=== PATIENT | female | born 1990 | race Caucasian/White ===

== ENCOUNTER → 2018-08-29 | Outpatient (CLI) | payer OTHER ==
--- NOTE | 2018-08-29 13:03 | REP ---
LEFT WRIST COMPLETE: 08/29/2018. CLINICAL HISTORY: Left wrist pain after trauma, patient fell. FINDINGS: Four views are provided. Distal radius and ulna without fracture or focal lesion. Carpal bones and their joint spaces are grossly intact. No fracture or avulsion. Metacarpals and their articular relationships to the wrist and phalanges as visualized are also normal. IMPRESSION: 1. No visible or displaced fracture, avulsion, subluxation, focal bone lesion or other acute finding. Electronically Signed by Moustapha Chinchilla MD 08/29/2018 08:41 P
== END ==
LOC: M LRY 12:12
PROVIDERS: ATTEND Physician Assistant
DX: S69.92XA Unspecified injury of left wrist, hand and finger(s), initial encounter (principal); X58.XXXA Exposure to other specified factors, initial encounter; Y92.89 Other specified places as the place of occurrence of the external cause

== ENCOUNTER → 2019-04-13 | Outpatient (CLI) | payer OTHER ==
--- NOTE | 2019-04-13 22:46 | REP ---
TRANSVAGINAL PELVIC ULTRASOUND: Transvaginal pelvic ultrasound performed. Upper pelvis is suboptimally visualized due to this limited transvaginal scan. We attempted to obtain an order for transabdominal pelvic ultrasound, but were unsuccessful. The uterus is bicornuate in configuration and measures 9.3 x 4.4 x 6.7 cm. Endometrial thickness is 4 mm in the right horn and 5 mm in the left horn. Ovaries appear normal in size and echotexture, right ovary measuring 2.4 x 1.7 x 2.0 cm and left ovary 3.1 x 2.4 x 1.7 cm. There is no adnexal mass or free fluid. There is no evidence of ovarian torsion with duplex Doppler evaluation. No gross abnormality is seen in the region of the vaginal canal. IMPRESSION: Essentially negative transvaginal pelvic ultrasound. Bicornuate uterus. Electronically Signed by Edgardo Bennett MD 04/14/2019 03:37 P
== END ==
LOC: M RAD 15:31
PROVIDERS: ATTEND Nurse Practitioner Primary Care
DX: R10.2 Pelvic and perineal pain (principal); Q51.3 Bicornate uterus

== ENCOUNTER → 2019-07-18 | Outpatient (CLI) | payer OTHER ==
--- NOTE | 2019-07-18 12:57 | REP ---
PA and lateral chest: There are no comparisons. The lung titus are clear. The cardiac size is normal. The ori, mediastinum, and skeletal structures are unremarkable. Impression: Negative PA and lateral chest. Electronically Signed by Edgardo Ruiz MD 07/18/2019 12:48 P
== END ==
LOC: M LRY 12:26
PROVIDERS: ATTEND Physician Assistant
DX: R05 Cough (principal); R50.9 Fever, unspecified
CPT/HCPCS: 71046; 81002; 81025; 87086; G0463

== ENCOUNTER → 2019-07-18 | Outpatient (REF) | payer OTHER | LOC: M SFHCLERA 12:59 | PROVIDERS: ATTEND Physician Assistant | DX: R50.9 Fever, unspecified (principal) ==

== ENCOUNTER → 2020-01-14 | Emergency (ER) | payer OTHER ==
[~2020-01-14] MED LIST: BOOSTRIX/ADACEL VACCINE (DIPHTH/PERTUSS/ACELL/TETANUS) 0.5ML SYR As Ordered ONE
[2020-02-10 17:18] LABS: BLOOD UREA NITROGEN 9 MG/DL (7-18); CALCIUM LEVEL 9.5 MG/DL (8.5-10.1); CARBON DIOXIDE LEVEL 26 MEQ/L (21-32); CHLORIDE LEVEL 109 MEQ/L (98-107); CK-MB VALUE MASS < 1.0 NG/ML (<3.6); CPK CREATINE PHOSPHOKINASE 152 U/L (26-192); CREATININE FOR GFR 0.64 MG/DL (0.55-1.30); FREE T4 1.28 NG/DL (0.76-1.46); GLOMERULAR FILTRATION RATE > 60.0 (>60); GLUCOSE, FASTING 80 MG/DL (70-100); LIPASE 59 U/L (73-393); MAGNESIUM LEVEL 2.2 MG/DL (1.8-2.4); MB/CK RELATIVE INDEX 0.66 (< OR =4); POTASSIUM SERUM 3.7 MEQ/L (3.5-5.1); SODIUM LEVEL 143 MEQ/L (136-145); THYROID STIMULATING HORMONE 0.444 uIU/ML (0.358-3.740); TROPONIN I < 0.02 NG/ML (< 0.10)
[2020-02-17 12:32] LABS: BASO # 0.1 10^3/uL (0.0-0.2); EOS # 0.1 10^3/uL (0.0-0.5); EOS % 1.8 % (0.0-3.0); HEMATOCRIT 44.9 % (36.0-47.0); LYMPH # 1.9 10^3/uL (1.5-5.0); LYMPH % 30.5 % (24.0-44.0); MEAN CORPUSCULAR HEMOGLOBIN 31.1 pg (27.0-33.0); MEAN CORPUSCULAR HGB CONC 33.4 g/dl (32.0-36.5); MEAN CORPUSCULAR VOLUME 93.2 fl (80.0-96.0); MONO # 0.4 10^3/uL (0.0-0.8); MONO % 6.8 % (0.0-5.0); NEUTROPHILS # 3.6 10^3/uL (1.5-8.5); NEUTROPHILS % 59.6 % (36.0-66.0); PLATELET COUNT, AUTOMATED 197 10^3/uL (150-450); RED BLOOD COUNT 4.82 10^6/uL (4.00-5.40); WHITE BLOOD COUNT 6.1 10^3/uL (4.0-10.0)
--- NOTE | 2020-03-01 09:49 | ECGEPIP ---
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
== END | disposition home or self-care (01) ==
LOC: M ED 14:24
DX: S60.221A Contusion of right hand, initial encounter (principal); I49.3 Ventricular premature depolarization; W25.XXXA Contact with sharp glass, initial encounter; Y92.098 Other place in other non-institutional residence as the place of occurrence of the external cause; R42 Dizziness and giddiness; I48.91 Unspecified atrial fibrillation; I10 Essential (primary) hypertension; R01.1 Cardiac murmur, unspecified; Z88.0 Allergy status to penicillin; Z88.5 Allergy status to narcotic agent; Z79.899 Other long term (current) drug therapy